=== PATIENT | female | born 1990 | race Asian ===

== ENCOUNTER 2022-07-13 10:38 | Outpatient (AMB) | payer OTHER, SELFPAY ==
--- NOTE | 2022-07-13 10:43 | MHC.PC.OV ---
Vital Signs 07/13/22 10:44 Height 5 ft 7 in Weight 160 lb BMI 25.0 BP 106/60 Blood Pressure Location Lt brachial Position Sitting Pulse 80 Pulse Source Pulse Oximeter Pulse Oximetry (%) 98 Oxygen Delivery Method Room Air Intake Visit Reasons: ED followup CDH-back pain Intake Note: Pt is here today for ER follow up visit from [facility] for back pain. Allergies No Known Allergies Allergy (Verified 06/17/23 01:54) Medication List - Last Reconciled 07/13/22 by Gemma Ernandez MD cyclobenzaprine 10 mg PO TID ibuprofen 600 mg PO Q6H PRN Tobacco use date assessed: 07/13/22 HPI ED followup CDH-back pain HPI Details 32-year-old lady here today for follow-up after recent ER visit at [facility]. She presented there with severe right lower back pain, nonradiating. She just got back from [place] and was asleep during her hold plane ride which lasted about 10 hours. When she woke up upon landing she experienced severe back pain mainly on the right and had to be helped out of the plane. Denies any accompanying urinary incontinence, with intermittent numbness and tingling going down right lower extremity.. She was diagnosed to have lumbago and place done cyclobenzaprine and Advil 2 to at the ER. Patient however complaining of persistent pain on the right side, nonradiating, minimally relieved by the medication she was prescribed peer [facility] Medical History ASCUS with positive high risk HPV cervical Plantar fasciitis, bilateral Acute low back pain with sciatica URI, acute Surgical History No pertinent past surgical history Family History Mother Essential hypertension Maternal Grandmother Essential hypertension Asthma Maternal Grandfather COPD (chronic obstructive pulmonary disease) Maternal Aunt Breast cancer 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 1. Little interest or pleasure in doing things: not at all 2. Feeling down, depressed, or hopeless: not at all 3. Trouble falling or staying asleep, or sleeping too much: not at all 4. Feeling tired or having little energy: not at all 5. Poor appetite or overeating: not at all 6. Feeling bad about yourself - or that you are a failure or have let yourself or your family down: not at all 7. Trouble concentrating on things, such as reading the newspaper or watching television: not at all 8. Moving or speaking so slowly that other people could have noticed. Or the opposite - being so fidgety or restless that you have been moving around a lot more than usual: not at all 9. Thoughts that you would be better off or of hurting yourself in some way: not at all Total score: 0 Depression Screening Interpretation: Negative 58005 - PHQ-9 Billing: Yes Source: Developed by Drs. Francesco Caruso, Laura Christopher, Carlos Baxter and colleagues, with an educational elicia from [employer]. Thrive Questionnaire Date Thrive assessed: 07/13/22 I am a: Patient What is your living situation today?: I have a steady place to live Within the past 12 months, did the food you bought not last and you didn't have the money to get more?: Never true Within the past 12 months, did you worry whether your food would run out before you got money to buy more?: Never true Do you have trouble paying for medicines?: No Do you have trouble getting transportation to medical appointments?: No Do you have trouble paying your heating and electricity bill?: No Do you have trouble taking care of your child, family member or friend?: No Do you have trouble with day-to-day activities such as bathing, preparing meals, shopping, managing finances, etc.?: No Are you currently unemployed and looking for a job?: No Are you interested in more education?: No AUDIT C Alcohol Use Questionnaire (AUDIT-C) 1. How often do you have a drink containing alcohol?: Never 3. How often do you have six or more drinks on one occasion?: Never Total Score: 0 ADELA-7 AMB Questionnaire ADELA-7 Date ADELA - 7 assessed: 07/13/22 Feeling nervous, anxious, or on edge: 0 = Not at all Not being able to stop or control worryin = Not at all Worrying too much about different things: 0 = Not at all Trouble relaxin = Not at all Being so restless that it is hard to sit still: 0 = Not at all Becoming easily annoyed or irritable: 0 = Not at all Feeling afraid as if something awful might happen: 0 = Not at all Total ADELA-7 score (0-4 normal; 5-9 mild; 10-14 moderate; 15-21 severe): 0 Source: Developed by Drs. Francesco Caruso, Laura Christopher, Carlos Baxter and colleagues, with an educational elicia from [employer]. ADELA-7 Assessment Billing ADELA-7 Assessment Tool: ADELA-7 Assessment 98994 Review of Systems Const All systems reviewed & are unremarkable except as noted in HPI and below Physical exam (Primary Care) Vital Signs: Last Vital Signs Pulse 80 07/13/22 10:44 BP 106/60 07/13/22 10:44 Pulse Ox 98 07/13/22 10:44 Oxygen Delivery Method Room Air 07/13/22 10:44 BMI result Body Mass Index 25.0 Tobacco/Smoking Status: Tobacco use Status Tobacco use date assessed 07/13/22 07/13/22 10:50 Patient Tobacco Use Status Never used Tobacco 07/13/22 10:50 e-Cigarette/Vaping Use Never Used 07/13/22 10:50 PHQ-9: PHQ-9 Score PHQ-9: Total score 0 07/13/22 11:18 Depression Screening Interpretation: Negative Thrive Assessment: Date of Thrive Assessment Date Thrive assessed 07/13/22 07/13/22 10:50 Const Other: Alert oriented x3, in mild pain distress, positive antalgic gait Orientation/consciousness: patient oriented x3 Neck Neck: Yes full ROM, Yes no lymphadenopathy, Yes no meningeal signs and Yes supple Resp Auscultation: clear to auscultation bilaterally Cardio Other: S1-S2 present regular rate and rhythm GI Palpation (GI): Soft to palpation, nontender, no guarding and no masses Back/Spine/Pelvis Thoracic/Lumbar Spine: paraspinal muscle tenderness on the right in the mid lumbar and in the lower lumbar Skin Rashes: no rashes Neuro General: patient oriented x3, moves all extremities, Normal light touch and pain sensation, no meningeal signs, no focal motor deficits and CN's II-XI intact bilaterally Extrem General: Yes full ROM, Yes no joint enlargement, Yes no clubbing, cyanosis or edema, Yes no pedal edema and Yes normal gait Psych Appearance: grossly normal and well kempt Mental Status: mental status grossly normal Speech and movement: Normal speech and movement present Affect: normal affect Attitude: cooperative Thought process: Normal thought process present Assessment and Plan Assessment & Plan (1) Acute low back pain with sciatica: Code(s): M54.40 - Lumbago with sciatica, unspecified side Qualifiers: Back pain laterality: right Sciatica laterality: sciatica of right side Qualified Code(s): M54.41 - Lumbago with sciatica, right side Plan: Referred for physical therapy, the meantime continue with cyclobenzaprine at bedtime, and Advil alternating with Tylenol arthritis every 6-8 hours as needed for pain control. Apply local heat to affected area in the right lower back. Orders: Orders PT Evaluation and Treatment 07/13/22 M54.40 - Lumbago with sciatica, unspecified side Coding Level of Care Code Est Pt Level 3 (33173) Diagnoses Acute right-sided low back pain with right-sided sciatica M54.41 Back pain laterality: right Sciatica laterality: sciatica of right side Additional Codes ADELA-7 Assessment Billing - ADELA-7 Assessment Tool: ADELA-7 Assessment 26053 ([id number])
[2022-07-13 10:44] VITALS: BP 106/60; PULSE 80; O2SAT 98; BMI 25.0
== END 2022-07-13 11:20 | disposition home or self-care (01) ==
PROVIDERS: PCP Internal Medicine; Visit Provider Internal Medicine
DX: M54.41 Lumbago with sciatica, right side (principal)
CPT/HCPCS: 99213

== ENCOUNTER 2022-07-27 11:06 | Outpatient (REF) | payer OTHER, SELFPAY ==
[2022-07-27 14:13] LABS: MANUAL DIFF FLAG NO
[2022-07-27 14:19] LABS: Basophils Percent Auto 0.7 % (0-2); Eosinophils Absolute Auto 0.2 X10*3/uL (0.0-0.4); Eosinophils Percent Auto 3.3 % (0-4); Hematocrit 44.6 % (37.0-47.0); Hemoglobin 14.6 g/dl (12.0-16.0); Imm Gran Abs Auto 0.02 X10*3/uL (0.00-0.03); Imm Gran Pct Auto 0.3 % (0.0-0.4); Lymphocytes Absolute Auto 2.3 X10*3/uL (1.2-4.9); Lymphocytes Percent Auto 37.7 % (20-40); Mean Corpuscular HGB Conc 32.7 g/dl (31.0-35.0); Mean Corpuscular Hemoglobin 26.7 pg (27.0-33.0); Mean Corpuscular Volume 81.7 fL (80.0-98.0); Mean Platelet Volume 9.4 fL (9.4-12.3); Monocytes Absolute Auto 0.5 X10*3/uL (0.1-1.2); Monocytes Percent Auto 7.6 % (2-11); Neutrophils Percent Auto 50.4 % (45-73); Platelet Count 359 X10*3/uL (160-400); Red Blood Count 5.46 X10*6/uL (4.20-5.50); Red Cell Distribution Width 12.8 % (11.0-16.0)
[2022-07-27 14:39] LABS: Cholesterol 193 mg/dL; Glucose Fasting 88 mg/dL (60-99); HDL Cholesterol 58 mg/dL; LDL Cholesterol Calculated 121 mg/dl; Triglycerides 71 mg/dL
[2022-07-27 14:56] LABS: Vitamin D 25-OH Total 22.3 ng/mL (>30)
== END 2022-07-27 11:07 | disposition home or self-care (01) ==
LOC: HO.HMGCLDS 11:06
PROVIDERS: PCP Internal Medicine; Visit Provider Internal Medicine
DX: Z00.00 Encounter for general adult medical examination without abnormal findings (principal)
CPT/HCPCS: 36415; 80061; 82306; 82947; 85025

== ENCOUNTER 2022-08-09 16:00 | Outpatient (RCR) | payer OTHER, SELFPAY ==
--- NOTE | 2022-07-20 14:09 | MHC.PT.EP ---
[facility] [place] Office [place] Office [place] Office [address] Fede Shin [address] [phone] F: [phone] F: [phone] F: [phone] F: [phone] Physical Therapy Plan of Care Date of Evaluation: Date of Surgery: N/A Diagnosis: lumbago w/ sciatica, unspecified side () Assessment: pt is a 32 y/o female presenting to physical therapy w/ referring diagnosis of lumbago with sciatica; unspecified side. Impairments include pain, decreased range of motion, decreased strength, impaired functional mobility, impaired postural awareness, and altered ambulation mechanics. pt is a good candidate for skilled PT due to age, potential remediation of impairments, typyical disease/condition progression and prognosis, comorbidities, and motivation. pt would benefit from skilled PT intervention to provide a tailored strengthening and stretching exercise program, functional training, gait training, postural re-training, neuromuscular re-education, modalities as needed for pain, equipment safety demonstration. Frequency and Duration: The patient will be seen 2x/wk for 4 wks Short Term Goals: pt will be I w/ HEP to promote self-management of condition. pt will demo proper sitting posture w/ lumbar roll to promote neutral spine w/ seated ADLs and work-related tasks. Halfway Goals: pt will improve lumbar flexion AROM to 80% to promote ease in lower body dressing and picking up objects off the floor. pt will report a statistically significant improvement in self-reported outcome measure, Carole, to promote return to PLOF. Treatment Plan: Modalities to reduce pain, spasms and effusion. Manual therapy to restore motion and function. Therapeutic exercise to improve strength and flexibility. Neuromuscular re-education for posture and balance. Therapeutic activities to return to functional activities of daily living. Electronically signed by: Blanca Merino PT, DPT Please sign and return to therapist. Thank you for your referral.
--- NOTE | 2022-08-14 13:40 | MHC.PT.DC ---
[facility] [place] Office [place] Office [place] Office [address] Fede Shin [address] [phone] F: [phone] F: [phone] F: [phone] F: [phone] Physical Therapy Discharge Report Diagnosis: lumbago w/ sciatica, unspecified side (RC) Date of Surgery: N/A Date of Evaluation: 07/20/22 Date of Discharge: 08/14/22 Treatments to Date: 5 Cancellations to Date: 0 No Shows to Date: 0 Discharge Status: Improved Function Independent with HEP Discharge Summary: Per last treatment note: Pt has made excellent progress with skilled PT since SOC. She is motivated and compliant with HEP. She requests to self D/C from PT at this time as she feels she has improved mobility, has had decrease in pain and is I with HEP. She demonstrates good pacing and mechanics throughout exercises. She improved her score on Modified Oswestry Low Back Pain Disability Questionnaire to 6/50. Pt is I with HEP. Provided pt with printed, updated copy of HEP and pt verbalized understanding. Pt reports no further questions or concerns for PT at this time. Electronically signed by: Blanca Merino PT, DPT Please sign and return to therapist. Thank you for your referral.
== END 2022-08-14 13:40 | disposition home or self-care (01) ==
LOC: HO.PT 16:00
PROVIDERS: PCP Internal Medicine; Visit Provider Internal Medicine
DX: M54.50 Low back pain, unspecified (principal)
CPT/HCPCS: 97110; 97161

== ENCOUNTER 2022-12-25 13:10 | Outpatient (REF) | payer OTHER, SELFPAY ==
[2023-01-01 18:39] LABS: HPV 16 RNA NOT DETECTED (NOT DETECTED); HPV mRNA E6/E7 rflx Detected (Not Detected)
== END 2022-12-25 13:11 | disposition home or self-care (01) ==
LOC: HO.LAB 13:10
PROVIDERS: Visit Provider Internal Medicine
DX: Z12.4 Encounter for screening for malignant neoplasm of cervix (principal); Z11.51 Encounter for screening for human papillomavirus (HPV)
CPT/HCPCS: 87624; 87625; 88142

== ENCOUNTER 2022-12-25 13:24 | Outpatient (REF) | payer OTHER, SELFPAY ==
[2022-12-25 17:20] LABS: Vitamin D 25-OH Total 49.8 ng/mL (>30)
== END 2022-12-25 13:25 | disposition home or self-care (01) ==
LOC: HO.HMGCLDS 13:24
PROVIDERS: PCP Internal Medicine; Visit Provider Internal Medicine
DX: Z00.00 Encounter for general adult medical examination without abnormal findings (principal); E55.9 Vitamin D deficiency, unspecified
CPT/HCPCS: 36415; 82306

== ENCOUNTER 2023-06-11 12:03 | Outpatient (REF) | payer OTHER, SELFPAY | END 2023-06-11 12:04 | disposition home or self-care (01) | LOC: HO.LNP 12:03 | PROVIDERS: PCP Internal Medicine; Visit Provider Obstetrics & Gynecology | DX: R87.810 Cervical high risk human papillomavirus (HPV) DNA test positive (principal); R87.610 Atypical squamous cells of undetermined significance on cytologic smear of cervix (ASC-US) | CPT/HCPCS: 57454; 81025; 88305 ==

== ENCOUNTER 2023-06-11 12:03 | Outpatient (AMB) | payer OTHER, SELFPAY ==
[2023-06-11 12:13] VITALS: BP 110/80; BMI 26.3
--- NOTE | 2023-06-11 12:13 | MHC.OFFVIS ---
Intake Vital Signs 06/11/23 12:13 Height 5 ft 7 in Weight 168 lb BMI 26.3 BP 110/80 Intake Visit Reasons: COLPO/PCP referral/DO NOT RS Science Analyst Required: No Information Interpreted: non-clinical & clinical Molecular Physicist: Molecular Physicist Present (Aidyn) Allergies No Known Allergies Allergy (Verified 06/11/23 12:24) Is last menstrual period known: Yes Last menstrual period: 05/28/23 Post menopausal: No HPI HPI Comments History of Present Illness Details Presenting referred from her PCP regarding abnormal Pap smear showing ascus/HPV E6/E7 positive, other HPV are negative PFSH Medical History ASCUS with positive high risk HPV cervical Plantar fasciitis, bilateral Acute low back pain with sciatica URI, acute Surgical History No pertinent past surgical history Family History Mother Essential hypertension Maternal Grandmother Essential hypertension Asthma Maternal Grandfather COPD (chronic obstructive pulmonary disease) Maternal Aunt Breast cancer Social History Housing: Condominium Alcohol intake: current Alcohol intake frequency: holidays/special occasions only Patient Tobacco Use Status: Never used Tobacco e-Cigarette/Vaping Use: Never Used Current occupational status: employed 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 Cognitive needs: No Hearing needs: No Vision needs: No Female Reproductive History Menstrual Age of Menarche: 13 Duration of menses: 3-5 days Date of last menstrual period: 05/28/23 control method: none Total pregnancies: 0 Date of last pap smear: 12/27/22 (ASCUS +HPV) History of abnormal pap smear: Yes Review of Systems Const All systems reviewed & are unremarkable except as noted in HPI and below Physical Exam General: Yes no CVA tenderness External Female Exam: normal external appearance and normal appearance of the urethra Speculum Exam - Vagina: normal appearance of the vagina, normal palpation, no lesions and no masses Speculum Exam - Cervix: normal appearance of the cervix, normal palpation, no lesions, no masses and nontender Bimanual exam- vagina & uterus: normal bimanual exam, normal palpation, uterine size normal, normal palpation, uterine shape normal, No Cervical tenderness present and non-tender Bimanual Exam- Adnexa, other: normal adnexae Back/Spine/Pelvis Back: no CVA tenderness Office Procedures Colposcopy Before the procedure was started discussed with the patient the procedure, alternatives & all the risks associated with the procedure (bleeding, infection, injury to vagina, bladder, vessels, possible need for transfusion with all its risks) then patient signed the consent UPT done in the office & negative Pap smear = ascus/HPV positive Speculum inserted, acetic acid used Colposcopy done Transformation zone seen, acetowhite lesions identified at 5+6+7+9+11+12+1+3 o?clock, cervical biopsies taken from 5+6+7+9+11+12+1+3 o?clock, ECC done afterwards. Vaginoscopy of the upper vagina showed no evidence of any aceto-white lesions Monsel solution used for hemostasis. The patient tolerated well . At the end the patient was instructed to call if temp>100.4, abdominal pain, n/v, bleeding; The patient was given the following instructions: nothing per vagina, no intercourse or bath tub use. All questions answered the patient verbalized understanding. Instructed the patient to make an appointment in 2 weeks for follow-up This note was generated with a voice recognition program. Some errors may have been overlooked during the review of this note. Sometimes these errors may affect the content or meaning of a given sentence. [id number] of cervix including upper vagina with biopsy and ECC Procedure code (CPT) selection complete Results AMB Test Urine AMB Test Urine Negative Last Edit by REJI Glover on 06/11/23 12:28 Assessment & Plan Assessment & Plan (1) ASCUS with positive high risk HPV cervical: Code(s): R87.610 - Atypical squamous cells of undetermined significance on cytologic smear of cervix (ASC-US); R87.810 - Cervical high risk human papillomavirus (HPV) DNA test positive Plan: Discussed with the patient the result of her abnormal pap, its significance, risk of progression, persistence, and regression if untreated. the false positive/negative rate being a screening test, the need for diagnostic test -colposcopy, biopsy, endocervical curettage. Colpo/ECC done, see procedure note. The patient verbalized understanding and agreed with the plan, all questions answered. Orders: Orders AMB HCG Urine Test Today Z32.02 - Encounter for test, result negative AMB Colposcopy Today R87.610 - Atypical squamous cells of undetermined significance on cytologic smear of cervix (ASC-US), R87.810 - Cervical high risk human papillomavirus (HPV) DNA test positive Coding Level of Care Code New Pt Level 3 (30452) Procedure Only Diagnoses ASCUS with positive high risk HPV cervical R87.610; R87.810 CPT Codes Colposcopy - CPT: 20817-Rqvcbkmoj of cervix including upper vagina with biopsy and ECC ([id number])
== END 2023-06-11 12:47 | disposition home or self-care (01) ==
LOC: HO.HWS 12:03
PROVIDERS: PCP Internal Medicine; Visit Provider Obstetrics & Gynecology
DX: R87.610 Atypical squamous cells of undetermined significance on cytologic smear of cervix (ASC-US) (principal); R87.810 Cervical high risk human papillomavirus (HPV) DNA test positive; Z32.02 Encounter for pregnancy test, result negative
CPT/HCPCS: 57454

== ENCOUNTER 2023-08-01 08:13 | Outpatient (AMB) | payer OTHER, SELFPAY ==
[2023-08-01 08:14] VITALS: BP 110/74; BMI 26.2
--- NOTE | 2023-08-01 08:14 | A.OFFVIS_ITS ---
Intake Vital Signs 08/01/23 08:14 Height 5 ft 7 in Weight 167 lb 8.821 oz BMI 26.2 BP 110/74 Intake Visit Reasons: colpo follow up Allergies No Known Allergies Allergy (Verified 06/17/23 01:54) HPI HPI Comments History of Present Illness Details Presenting post colpo for follow-up. The patient is doing well with no complaints. The pathology showed the following: A. Cervix, biopsy at 1: Benign cervical transformation zone mucosa, no dysplasia seen. B. Cervix, biopsy at 3: Benign cervical squamous mucosa, no transformation zone or dysplasia seen. C. Cervix, biopsy at 5: Mostly denuded benign endocervical mucosa, no transformation zone or dysplasia seen. D. Cervix, biopsy at 6: Cervical transformation zone mucosa with low-grade squamous intraepithelial lesion (WHITNEY 1). E. Cervix, biopsy at 7: Benign cervical squamous mucosa, no transformation zone or dysplasia seen. F. Cervix, biopsy at 9: Benign cervical squamous mucosa, no transformation zone or dysplasia seen. G. Cervix, biopsy at 11: Benign endocervical mucosa, no transformation zone or dysplasia seen. H. Cervix, biopsy at: 12: Benign endocervical mucosa, no transformation zone or dysplasia seen. I. Endocervix, curettage: Benign endocervical mucosa, no transformation zone or dysplasia seen PFSH Medical History ASCUS with positive high risk HPV cervical Plantar fasciitis, bilateral Acute low back pain with sciatica URI, acute Surgical History No pertinent past surgical history Family History Mother Essential hypertension Maternal Grandmother Essential hypertension Asthma Maternal Grandfather COPD (chronic obstructive pulmonary disease) Maternal Aunt Breast cancer Social History Housing: Condominium Alcohol intake: current Alcohol intake frequency: holidays/special occasions only Patient Tobacco Use Status: Never used Tobacco e-Cigarette/Vaping Use: Never Used Current occupational status: employed 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 Cognitive needs: No Hearing needs: No Vision needs: No Female Reproductive History Menstrual Age of Menarche: 13 Review of Systems Const All systems reviewed & are unremarkable except as noted in HPI and below Reports as per HPI and Reports no additional complaints GI Reports no additional complaints Reports no additional complaints Physical Exam Vital Signs: Last Vital Signs BP 110/74 08/01/23 08:14 BMI result Body Mass Index 26.2 Assessment & Plan Assessment & Plan (1) Dysplasia of cervix, low grade (WHITNEY 1): Code(s): N87.0 - Mild cervical dysplasia Plan: Discussed with the patient the pathology results of the colposcopy biopsies & endocervical curettage ( mild dysplasia-WHITNEY 1). Discussed with the patient the sensitivity specificity, positive and negative predictive value in detecting cervical cancer in addition discussed the regression, persistence and progression rates. Recommended co-testing in 12 months, if cytology and or HPV are abnormal will proceed was colposcopy biopsy and endocervical curettage. Instructions given to the patient to schedule a co test appointment in 1 year. All questions answered the patient verbalized understanding. Coding Level of Care Code Est Pt Level 3 (95365) Diagnoses Dysplasia of cervix, low grade (WHITNEY 1) N87.0
== END 2023-08-01 08:38 | disposition home or self-care (01) ==
PROVIDERS: PCP Internal Medicine; Visit Provider Obstetrics & Gynecology
DX: N87.0 Mild cervical dysplasia (principal)
CPT/HCPCS: 99213

== ENCOUNTER → 2023-08-01 08:13 | Outpatient (BNVA) | payer OTHER, SELFPAY | PROVIDERS: PCP Internal Medicine; Visit Provider Obstetrics & Gynecology ==

== ENCOUNTER 2023-11-12 08:48 | Outpatient (AMB) | payer OTHER, SELFPAY ==
[2023-11-12 09:43] VITALS: BP 128/88; PULSE 79; O2SAT 97; BMI 27.0
--- NOTE | 2023-11-12 09:43 | MHC.OFFWIV ---
Intake Vital Signs 11/12/23 09:43 Height 5 ft 7 in Weight 172 lb 8 oz BMI 27.0 BP 128/88 Blood Pressure Location Lt brachial Position Sitting Pulse 79 Pulse Source Pulse Oximeter Pulse Oximetry (%) 97 Oxygen Delivery Method Room Air Intake Visit Reasons: EP pink eye rt eye Patient Tobacco Use Status: Never used Tobacco Allergies No Known Allergies Allergy (Verified 11/12/23 09:44) Medication List - Last Reconciled 11/12/23 by Charan Barboza MD No Known Home Meds Do you need a note to return to daycare/school/sports/work: Yes HPI EP pink eye rt eye HPI Details Patient is a 33-year-old female came today to be evaluated for possible conjunctivitis Patient says that her eyes were feeling itchy for the past 2 days And yesterday she rubs them, they were not that bad after that until this morning he woke up with crusting both eyes They feeling irritated now but her vision is intact Review system: There is no fever no chills no headache no nasal discharge no sinus pain, no cough no chest pains I am treating her with Polytrim eyedrops to be used every 4-6 hour for next 5 days If there is no improvement within 24-48 hours patient need to see her eye doctor or primary care Note given to be off work until , 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 [employer] Medical History ASCUS with positive high risk HPV cervical Plantar fasciitis, bilateral Acute low back pain with sciatica URI, acute Surgical History No pertinent past surgical history Family History Mother Essential hypertension Maternal Grandmother Essential hypertension Asthma Maternal Grandfather COPD (chronic obstructive pulmonary disease) Maternal Aunt Breast cancer Social History Housing: Condominium Alcohol intake: current Alcohol intake frequency: holidays/special occasions only Patient Tobacco Use Status: Never used Tobacco e-Cigarette/Vaping Use: Never Used Current occupational status: employed 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 Cognitive needs: No Hearing needs: No Vision needs: No Female Reproductive History Menstrual Age of Menarche: 13 Review of Systems Const All systems reviewed & are unremarkable except as noted in HPI and below Physical Exam Vital Signs: Last Vital Signs Pulse 79 11/12/23 09:43 BP 128/88 11/12/23 09:43 Pulse Ox 97 11/12/23 09:43 Oxygen Delivery Method Room Air 11/12/23 09:43 BMI result Body Mass Index 27.0 Const General: no acute distress Orientation/consciousness: patient oriented x3 Eyes Other: Both conjunctiva injected, pupils reactive to light, EOMI, no pain with palpation, no photophobia Resp Effort & Inspection: normal respiratory effort and able to speak in complete sentences Auscultation: clear to auscultation bilaterally Neuro General: patient oriented x3 Psych Mental Status: mental status grossly normal Assessment & Plan Assessment & Plan (1) Acute conjunctivitis, bilateral: Code(s): H10.33 - Unspecified acute conjunctivitis, bilateral Qualifiers: Acute conjunctivitis type: unspecified Qualified Code(s): H10.33 - Unspecified acute conjunctivitis, bilateral Plan Patient is a 33-year-old female came today to be evaluated for possible conjunctivitis Patient says that her eyes were feeling itchy for the past 2 days And yesterday she rubs them, they were not that bad after that until this morning he woke up with crusting both eyes They feeling irritated now but her vision is intact Review system: There is no fever no chills no headache no nasal discharge no sinus pain, no cough no chest pains I am treating her with Polytrim eyedrops to be used every 4-6 hour for next 5 days If there is no improvement within 24-48 hours patient need to see her eye doctor or primary care Note given to be off work until , 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
== END 2023-11-12 09:51 | disposition home or self-care (01) ==
PROVIDERS: PCP Internal Medicine; Visit Provider Internal Medicine
DX: H10.33 Unspecified acute conjunctivitis, bilateral (principal)
CPT/HCPCS: 99213